=== PATIENT | female | born 1995 | race Caucasian/White ===

== ENCOUNTER → 2018-06-16 | Outpatient (CLI) | payer OTHER ==
--- NOTE | 2018-06-16 12:31 | US ---
EXAMINATION TYPE: US abdomen complete DATE OF EXAM: 06/16/2018 COMPARISON: NONE CLINICAL HISTORY: Abdominal pain. EXAM MEASUREMENTS: Liver Length: 14.0 cm Gallbladder Wall: 0.2 cm CBD: 0.5 cm Spleen: 8.9 cm Right Kidney: 11.4 x 4.4 x 4.8 cm Left Kidney: 10.9 x 4.8 x 4.2 cm Pancreas: Tail obscured by overlying bowel gas, visualized portions wnl Liver: wnl Gallbladder: wnl Evidence for sonographic Bray's sign: No CBD: wnl Spleen: wnl Right Kidney: No hydronephrosis or masses seen Left Kidney: No hydronephrosis or masses seen Upper IVC: wnl Abd Aorta: wnl The liver is homogenous. The intrahepatic portion of the IVC and proximal abdominal aorta are within normal limits. There is no evidence of cholelithiasis. Common bile duct is unremarkable. The visu alized portions of the pancreas are homogenous. The spleen is unremarkable. Kidneys are symmetric a nd free of hydronephrosis. No renal lesions are seen. IMPRESSION: Unremarkable abdominal ultrasound. No sonographic evidence of cholelithiasis or acute cho lecystitis. No hydronephrosis or nephrolithiasis.
--- NOTE | 2018-06-16 12:32 | US ---
EXAMINATION TYPE: US pelvic complete DATE OF EXAM: 06/16/2018 COMPARISON: NONE CLINICAL HISTORY: R10.9 ABD PAIN. Pelvic pain TECHNIQUE: . Transabdominal sonographic images of the pelvis were acquired. Date of LMP: About 1 month ago EXAM MEASUREMENTS: Uterus: 6.1 x 2.4 x 3.3 cm Endometrial Stripe: 0.3 cm Right Ovary: 2.2 x 1.0 x 1.5 cm Left Ovary: 3.4 x 1.5 x 2.4 cm 1. Uterus: Anteverted wnl 2. Endometrium: wnl 3. Right Ovary: wnl 4. Left Ovary: wnl 5. Bilateral Adnexa: wnl 6. Posterior cul-de-sac: wnl IMPRESSION: Unremarkable pelvic ultrasound. No endometrial thickening or ovarian mass.
== END | disposition home or self-care (01) ==
LOC: MERGE 09:54 → RADUSWWP 09:54
PROVIDERS: ATTEND Family Medicine
DX: R10.9 Unspecified abdominal pain (principal)
CPT/HCPCS: 76700; 76856

== ENCOUNTER 2018-12-08 12:06 | Day surgery (SDC) | payer OTHER, BC ==
[2018-12-04 12:00] VITALS: BMI 27.4
[~2018-12-08 12:06] MED LIST: LACTATED RINGERS 1,000 ML IV SCH
[2018-12-08] MEDS ORDERED: LACTATED RINGERS 1,000 ML IV ONE (12:27)
[2018-12-08] MEDS ORDERED: LIDOCAINE 1% 20 ML VIAL (10MG/ML) FOR IV START INTRADERMA ONE (12:27)
[2018-12-08 12:40] VITALS: RESP 18; TEMP 97.2
[2018-12-08] MEDS ORDERED: PROPOFOL 10 MG/ML 20 ML VIAL IV ONE (13:47)
--- NOTE | 2018-12-08 14:27 | P.PCN ---
Date of Procedure: 12/08/18 Procedure(s) Performed: Procedure: Colonoscopy and biopsy. Preoperative diagnosis: Change in bowel habits and blood in the stools. Postoperative diagnosis: 1. Exam of the colon and terminal ileum within normal limits. 2. Biopsies obtained randomly from the colon. Preparation: HalfLytely prep. Sedation: Was provided by anesthesia. Brief clinical history: The patient is a 23-year-old female who is scheduled for this evaluation because of chronic issues with loose stools and and an episode of blood in her stools several weeks ago. This evaluation is to assess for inflammatory bowel disease or other pathology. Procedure: With the patient on her left lateral decubitus position and after informed consent and adequate sedation the perianal area was inspected and it did not show any fissures or fistulas. There were no masses felt on digital rectal examination. The Olympus CFH 190L video colonoscope was then inserted in the rectum in the usual fashion and advanced to the cecum. I was able to have a good look at the terminal ileum but I was not able to advance the endoscope into the terminal ileum or obtain biopsies from the terminal ileum. The colon and terminal ileum appeared normal with no edema, erythema, friability , ulceration, exudation or spontaneous bleeding. No polyps or tumors were seen. I obtained biopsies from the colon randomly then I retroflexed the endoscope in the rectum before the endoscope was withdrawn. The patient tolerated the procedure well. Plan: The patient was reassured. Will await biopsy results. Further plans will be made based on her course and biopsy results. She will follow-up with you as planned and I will be happy to see in the office if her symptoms persist or there is change.
[2018-12-08 15:03] VITALS: BP 126/72; PULSE 78
== END 2018-12-08 14:50 | disposition home or self-care (01) ==
LOC: ORWHC2ENDO 12:06
DX: R19.4 Change in bowel habit (principal); K92.1 Melena; K21.9 Gastro-esophageal reflux disease without esophagitis; Z79.3 Long term (current) use of hormonal contraceptives; Z88.0 Allergy status to penicillin; F17.210 Nicotine dependence, cigarettes, uncomplicated
CPT/HCPCS: 81025; 88305; 45380; J2704

== ENCOUNTER 2020-08-11 20:52 | Emergency (ER) | payer BC, OTHER ==
[2020-08-11 20:59] VITALS: RESP 18
[2020-08-11] MEDS ORDERED: ONDANSETRON 4 MG/2 ML VIAL IVP STA (21:32)
[2020-08-11] MEDS ORDERED: SODIUM CHLORIDE 0.9% 500 ML 500 ML IV ONE (21:32)
[2020-08-11] MEDS ORDERED: HYDROmorphone 0.5 MG/0.5 ML SYRINGE IVP STA (21:32)
[2020-08-11] MEDS ORDERED: SODIUM CHLORIDE 0.9% 1,000 ML IV SCH (21:45)
--- NOTE | 2020-08-11 21:52 | ED ---
Headache HPI - General Chief Complaint: Headache Stated Complaint: Severe Headache Time Seen by Provider: 08/11/20 21:10 Mode of arrival: ambulatory Limitations: no limitations - History of Present Illness Initial Comments: 25-year-old female presenting today for chief complaint of headache. Patient states that her headache began around 3:30 to 4 PM. She states she is unsure of the exact time but noted it came on over the course of 5 minutes denies max intensity right away stating it gradually worsened over the course of the afternoon. Denies thunderclap start, with max intensity within a few seconds. Denies neck pain or stiffness she denies loss of consciousness she denies increased with exertion, denies history of migraines, Anton uri symptoms, or known fevers. Denies vomiting. Admits to nausea. She denies any visual changes weakness speech changes visual changes diplopia. Patient denies history of PCKD or aneursym. Patient appears uncomfortable on arrival standing up putting head down on the bed. - Related Data Home Medications Medication Instructions Recorded Confirmed Green-Linyah 28 1 tab PO DAILY 08/11/20 08/11/20 Allergies Allergy/AdvReac Type Severity Reaction Status Date / Time Penicillins Allergy Unknown Verified 08/11/20 22:03 Review of Systems ROS Statement: Those systems with pertinent positive or pertinent negative responses have been documented in the HPI. ROS Other: All systems not noted in ROS Statement are negative. Past Medical History Past Medical History: GERD/Reflux Additional Past Medical History / Comment(s): seizure x1 as a small child. pelvic pain and diarrhea. food sensitivities History of Any Multi-Drug Resistant Organisms: None Reported Past Surgical History: No Surgical Hx Reported Past Anesthesia/Blood Transfusion Reactions: No Reported Reaction Past Psychological History: No Psychological Hx Reported Smoking Status: Former smoker Past Alcohol Use History: Occasional Past Drug Use History: None Reported - Past Family History Mother Family Medical History: No Reported History General Exam - General Exam Comments Initial Comments: General: The patient is awake and alert, in no distress, and does not appear acutely ill. Eye: +3 mm pupils are equal, round and reactive to light, extra-ocular movements are intact. No nystagmus. There is normal conjunctiva bilaterally. No signs of icterus. Ears, nose, mouth and throat: There are moist mucous membranes and no oral lesions. Neck: The neck is supple, there is no tenderness or JVD. Cardiovascular: There is a regular rate and rhythm. No murmur, rub or gallop is appreciated. Respiratory: Lungs are clear to auscultation, respirations are non-labored, breath sounds are equal. No wheezes, stridor, rales, or rhonchi. Musculoskeletal: Normal ROM, no tenderness. Strength 5/5. Sensation intact. Radial pulses equal bilaterally 2+. Neurological: A&O x 3. CN II-XII intact, There are no obvious motor or sensory deficits. Coordination appears grossly intact. Speech is normal. No nuchal rigidity. Negative Brudzinski negative Kernig no pronator drift. Movements of the upper or lower extremities smooth and coordinated. No ataxia. gait normal. Skin: Skin is warm and dry and no rashes or lesions are noted. Psychiatric: Cooperative, appropriate mood & affect, normal judgment. Limitations: no limitations Course Vital Signs 08/11/20 08/11/20 20:57 22:15 Temperature 99.8 F H 98.1 F Pulse Rate 129 H 91 Respiratory 18 18 Rate Blood Pressure 133/74 111/63 O2 Sat by Pulse 100 98 Oximetry Medical Decision Making - Medical Decision Making Labs reveal lactic acid elevation. No meningeal irritation signs. Patient does not appears toxic. Afebrile. No URI symptoms. No focal neurological deficits. Patient CT co contrast (-). Resolution of STEEN on re-evaluation. We discussed how LP could be performed she refused stating her symptoms are resolved. Patient will be discharged with PCP as she is symptom free, no focal deficits, afebrile with no nuchal rigidity. Case discussed with Dr. Zamora who is agreeable to care plan and discharge. - Lab Data Result diagrams: 08/11/20 21:42 08/11/20 21:42 Lab Results 08/11/20 08/11/20 08/11/20 Range/Units 21:42 21:42 21:42 WBC 10.2 (3.8-10.6) k/uL RBC 4.90 (3.80-5.40) m/uL Hgb 13.6 (11.4-16.0) gm/dL Hct 40.6 (34.0-46.0) % MCV 82.9 (80.0-100.0) fL MCH 27.8 (25.0-35.0) pg MCHC 33.5 (31.0-37.0) g/dL RDW 12.7 (11.5-15.5) % Plt Count 399 (150-450) k/uL Neutrophils % 71 % Lymphocytes % 23 % Monocytes % 3 % Eosinophils % 1 % Basophils % 1 % Neutrophils # 7.3 (1.3-7.7) k/uL Lymphocytes # 2.3 (1.0-4.8) k/uL Monocytes # 0.3 (0-1.0) k/uL Eosinophils # 0.1 (0-0.7) k/uL Basophils # 0.1 (0-0.2) k/uL Sodium 138 (137-145) mmol/L Potassium 4.7 (3.5-5.1) mmol/L Chloride 106 (98-107) mmol/L Carbon Dioxide 22 (22-30) mmol/L Anion Gap 10 mmol/L BUN 10 (7-17) mg/dL Creatinine 0.59 (0.52-1.04) mg/dL Est GFR (CKD-EPI)AfAm >90 (>60 ml/min/1.73 sqM) Est GFR (CKD-EPI)NonAf >90 (>60 ml/min/1.73 sqM) Glucose 108 H (74-99) mg/dL Plasma Lactic Acid Earle 2.6 H* (0.7-2.0) mmol/L Calcium 9.6 (8.4-10.2) mg/dL Total Bilirubin 0.5 (0.2-1.3) mg/dL AST 31 (14-36) U/L ALT 17 (4-34) U/L Alkaline Phosphatase 49 (38-126) U/L Total Protein 7.8 (6.3-8.2) g/dL Albumin 4.7 (3.5-5.0) g/dL Urine Color Urine Appearance (Clear) Urine pH (5.0-8.0) Ur Specific [place] (1.001-1.035) Urine Protein (Negative) Urine Glucose (UA) (Negative) Urine Ketones (Negative) Urine Blood (Negative) Urine Nitrite (Negative) Urine Bilirubin (Negative) Urine Urobilinogen (<2.0) mg/dL Ur Leukocyte Esterase (Negative) Urine RBC (0-5) /hpf Urine WBC (0-5) /hpf Ur Squamous Epith Cells (0-4) /hpf Urine Bacteria (None) /hpf Urine Mucus (None) /hpf Urine HCG, Qual (Not Detectd) 08/11/20 08/11/20 Range/Units 22:50 22:50 WBC (3.8-10.6) k/uL RBC (3.80-5.40) m/uL Hgb (11.4-16.0) gm/dL Hct (34.0-46.0) % MCV (80.0-100.0) fL MCH (25.0-35.0) pg MCHC (31.0-37.0) g/dL RDW (11.5-15.5) % Plt Count (150-450) k/uL Neutrophils % % Lymphocytes % % Monocytes % % Eosinophils % % Basophils % % Neutrophils # (1.3-7.7) k/uL Lymphocytes # (1.0-4.8) k/uL Monocytes # (0-1.0) k/uL Eosinophils # (0-0.7) k/uL Basophils # (0-0.2) k/uL Sodium (137-145) mmol/L Potassium (3.5-5.1) mmol/L Chloride (98-107) mmol/L Carbon Dioxide (22-30) mmol/L Anion Gap mmol/L BUN (7-17) mg/dL Creatinine (0.52-1.04) mg/dL Est GFR (CKD-EPI)AfAm (>60 ml/min/1.73 sqM) Est GFR (CKD-EPI)NonAf (>60 ml/min/1.73 sqM) Glucose (74-99) mg/dL Plasma Lactic Acid Earle (0.7-2.0) mmol/L Calcium (8.4-10.2) mg/dL Total Bilirubin (0.2-1.3) mg/dL AST (14-36) U/L ALT (4-34) U/L Alkaline Phosphatase (38-126) U/L Total Protein (6.3-8.2) g/dL Albumin (3.5-5.0) g/dL Urine Color Light Yellow Urine Appearance Clear (Clear) Urine pH 5.5 (5.0-8.0) Ur Specific [place] 1.008 (1.001-1.035) Urine Protein Negative (Negative) Urine Glucose (UA) Negative (Negative) Urine Ketones 1+ H (Negative) Urine Blood Negative (Negative) Urine Nitrite Negative (Negative) Urine Bilirubin Negative (Negative) Urine Urobilinogen <2.0 (<2.0) mg/dL Ur Leukocyte Esterase Trace H (Negative) Urine RBC 1 (0-5) /hpf Urine WBC 1 (0-5) /hpf Ur Squamous Epith Cells 1 (0-4) /hpf Urine Bacteria Few H (None) /hpf Urine Mucus Occasional H (None) /hpf Urine HCG, Qual Not Detected (Not Detectd) Disposition Clinical Impression: Headache Disposition: HOME SELF-CARE Condition: Good Instructions (If sedation given, give patient instructions): Acute Headache (ED) Additional Instructions: Please use medication as discussed. Please follow-up with family doctor in the next 2 days. Please return to emergency room if the symptoms increase or worsen or for any other concerns. Is patient prescribed a controlled substance at d/c from ED?: No Referrals: Nani Ackerman MD [Primary Care Provider] - 1-2 days Time of Disposition: 23:15
[2020-08-11 22:11] LABS: Basophils # (A) 0.1 k/uL (0-0.2); Basophils % (A) 1 %; Eosinophils # (A) 0.1 k/uL (0-0.7); Eosinophils % (A) 1 %; HCT 40.6 % (34.0-46.0); HGB 13.6 gm/dL (11.4-16.0); Lymphocytes # (A) 2.3 k/uL (1.0-4.8); Lymphocytes % (A) 23 %; MCH 27.8 pg (25.0-35.0); MCHC 33.5 g/dL (31.0-37.0); MCV 82.9 fL (80.0-100.0); Mean Platelet Volume 6.5; Monocytes # (A) 0.3 k/uL (0-1.0); Monocytes % (A) 3 %; Neutrophils # (A) 7.3 k/uL (1.3-7.7); Neutrophils % (A) 71 %; Platelet Count 399 k/uL (150-450); RDW 12.7 % (11.5-15.5); WBC 10.2 k/uL (3.8-10.6)
[2020-08-11 22:22] LABS: ALT 17 U/L (4-34); AST 31 U/L (14-36); African American GFR (CKD) >90 (>60 ml/min/1.73 sqM); Albumin 4.7 g/dL (3.5-5.0); Alkaline Phosphatase 49 U/L (38-126); Anion Gap 10 mmol/L; Blood Urea Nitrogen 10 mg/dL (7-17); Calcium 9.6 mg/dL (8.4-10.2); Carbon Dioxide 22 mmol/L (22-30); Chloride 106 mmol/L (98-107); Glucose 108 mg/dL (74-99); Non-African American GFR(CKD) >90 (>60 ml/min/1.73 sqM); Potassium 4.7 mmol/L (3.5-5.1); Sodium 138 mmol/L (137-145); Total Bilirubin 0.5 mg/dL (0.2-1.3); Total Protein 7.8 g/dL (6.3-8.2)
--- NOTE | 2020-08-11 22:35 | CT ---
EXAMINATION TYPE: CT brain wo con DATE OF EXAM: 08/11/2020 COMPARISON: None HISTORY: Acute headache, felt behind RT eye. CT DLP: 1084.4 mGycm Automated exposure control for dose reduction was used. Ventricles and sulci appear normal. There is no mass effect nor midline shift. There is no sign of in tracranial hemorrhage. The calvarium is intact. There is no evidence of cerebral edema. There is no e vidence of orbital mass. IMPRESSION: Normal CT scan of the brain.
[2020-08-11 22:38] VITALS: BP 111/63; PULSE 91; TEMP 98.1
[2020-08-11 23:14] LABS: Appearance,Urine Clear (Clear); Bacteria,Urine Few /hpf; Bilirubin,Urine Negative (Negative); Blood,Urine Negative (Negative); Color,Urine Light Yellow; Glucose,Urine (UA) Negative (Negative); Ketones,Urine 1+ (Negative); Leukocyte Esterase,Urine Trace (Negative); Mucus,Urine Occasional /hpf; Nitrite,Urine Negative (Negative); PH, Urine 5.5 (5.0-8.0); Protein,Urine Negative (Negative); RBC,Urine 1 /hpf (0-5); Specific Gravity,Urine 1.008 (1.001-1.035); Squamous Epithelial Cell,Urine 1 /hpf (0-4); Urobilinogen,Urine <2.0 mg/dL (<2.0); WBC,Urine 1 /hpf (0-5)
== END 2020-08-11 23:36 | disposition home or self-care (01) ==
LOC: EC 20:52
DX: R74.01 Elevation of levels of liver transaminase levels (principal); R51.9 Headache, unspecified; I10 Essential (primary) hypertension; Z88.0 Allergy status to penicillin; Z79.3 Long term (current) use of hormonal contraceptives; Z87.891 Personal history of nicotine dependence
CPT/HCPCS: 96374 ×2; 96375 ×2; 96361 ×2; 99284 ×2; 36415; 80053; 83605; 85025; 81001; 81025; 87040; 70450; J2405; J1170

== ENCOUNTER → 2020-11-14 | Outpatient (CLI) | payer BC ==
[2020-11-14 14:01] LABS: HCT 38.2 % (34.0-46.0); HGB 12.7 gm/dL (11.4-16.0); MCH 26.8 pg (25.0-35.0); MCHC 33.4 g/dL (31.0-37.0); MCV 80.4 fL (80.0-100.0); Mean Platelet Volume 6.8; Platelet Count 356 k/uL (150-450); RBC 4.75 m/uL (3.80-5.40); RDW 12.9 % (11.5-15.5); WBC 8.9 k/uL (3.8-10.6)
[2020-11-14 20:38] LABS: African American GFR (CKD) 144.8 (60.0-200.0); Albumin 4.7 g/dL (3.80-4.90); Albumin/Globulin Ratio 2.04 (1.60-3.17); Anion Gap 12.2 mmol/L (4.00-12.00); Calcium 9.2 mg/dL (8.7-10.3); Carbon Dioxide 21.8 mmol/L (21.6-31.8); Chol/HDL Ratio 3.55; Globulin 2.3 g/dL (1.6-3.3); LDL Cholesterol,Calculated 145.8 mg/dL (0.0-131.0); Non-African American GFR(CKD) 124.9 (60.0-200.0); Potassium 4.1 mmol/L (3.5-5.5); Total Bilirubin 0.6 mg/dL (0.3-1.2); VLDL Calculation 17.2 mg/dL (5.00-40.00)
[2020-11-14 21:20] LABS: Hemoglobin A1C 4.7 % (4.0-6.0)
== END | disposition home or self-care (01) ==
LOC: LABWHC1 12:41
PROVIDERS: ATTEND Nurse Practitioner
DX: Z00.00 Encounter for general adult medical examination without abnormal findings (principal)
CPT/HCPCS: 36415; 80053; 80061; 82306; 83036; 84443; 85027

== ENCOUNTER 2021-12-01 07:00 | Emergency (ER) | payer BC ==
[2021-12-01 07:04] VITALS: TEMP 97.2
[2021-12-01] MEDS ORDERED: METOCLOPRAMIDE 5 MG/ML 2 ML VIAL IVP STA (07:17)
[2021-12-01] MEDS ORDERED: diphenhydrAMINE 50 MG/ML 1 ML VIAL IVP STA (07:17)
[2021-12-01] MEDS ORDERED: KETOROLAC 15 MG/ML 1 ML VIAL IVP STA (07:17)
[2021-12-01] MEDS ORDERED: SODIUM CHLORIDE 0.9% 2,000 ML IV ONE (07:17)
--- NOTE | 2021-12-01 07:28 | ED ---
General Adult HPI - General Chief complaint: Dizziness Stated complaint: Dizziness, Covid+ Time Seen by Provider: 12/01/21 07:05 Source: patient, RN notes reviewed Mode of arrival: ambulatory Limitations: no limitations - History of Present Illness Initial comments: This a 26-year-old female presents emergency department with chief complaint of nausea vomiting, dizziness. Patient states that she tested positive for COVID- 19 as she started having a sore throat and her was positive. Patient states that she has no shortness breath denies Headache but states overnight she had worsening nausea in which she's had emesis this morning. Denies any abdominal pain no chance . Patient does complain of mild body aches no reported fever. Patient has known ALLERGY penicillin products no other ALLERGIES has no significant past medical history. - Related Data Previous Rx's Medication Instructions Recorded Meclizine [Antivert] 25 mg PO TID PRN #15 tab 12/01/21 Ondansetron Odt [Zofran Odt] 4 mg PO Q8HR PRN #10 tab 12/01/21 Allergies Allergy/AdvReac Type Severity Reaction Status Date / Time Penicillins Allergy Unknown Verified 12/01/21 08:20 Childhood Review of Systems ROS Statement: Those systems with pertinent positive or pertinent negative responses have been documented in the HPI. ROS Other: All systems not noted in ROS Statement are negative. Past Medical History Past Medical History: GERD/Reflux Additional Past Medical History / Comment(s): seizure x1 as a small child. pelvic pain and diarrhea. food sensitivities History of Any Multi-Drug Resistant Organisms: None Reported Past Surgical History: No Surgical Hx Reported Past Anesthesia/Blood Transfusion Reactions: No Reported Reaction Past Psychological History: No Psychological Hx Reported Smoking Status: Former smoker Past Alcohol Use History: Occasional Past Drug Use History: None Reported - Past Family History Mother Family Medical History: No Reported History General Exam Limitations: no limitations General appearance: alert, in no apparent distress Head exam: Present: atraumatic, normocephalic, normal inspection Eye exam: Present: normal appearance, PERRL, EOMI. Absent: scleral icterus, conjunctival injection, periorbital swelling ENT exam: Present: normal exam, normal oropharynx, mucous membranes moist Neck exam: Present: normal inspection, full ROM. Absent: tenderness, meningismus, lymphadenopathy Respiratory exam: Present: normal lung sounds bilaterally. Absent: respiratory distress, wheezes, rales, rhonchi, stridor Cardiovascular Exam: Present: normal rhythm, tachycardia, normal heart sounds. Absent: systolic murmur, diastolic murmur, rubs, gallop, clicks GI/Abdominal exam: Present: soft, normal bowel sounds. Absent: distended, tenderness, guarding, rebound, rigid Back exam: Absent: CVA tenderness (R), CVA tenderness (L) Neurological exam: Present: alert, oriented X3, CN II-XII intact Skin exam: Present: warm, dry, intact, normal color. Absent: rash Course Vital Signs 12/01/21 07:00 Temperature 97.2 F L Pulse Rate 104 H Respiratory 22 Rate Blood Pressure 135/73 O2 Sat by Pulse 99 Oximetry Medical Decision Making - Medical Decision Making 26-year-old female presented from for covid Positive. Patient's been having nausea, dizziness. Patient found to be acutely dehydrated was hydrated, given antiemetics and Antivert feels greatly improved we discharged in stable condition with Antivert and Zofran return parameters were discussed. - Lab Data Result diagrams: 12/01/21 07:45 12/01/21 07:45 Lab Results 12/01/21 12/01/21 12/01/21 Range/Units 07:45 07:45 07:45 WBC 6.0 (3.8-10.6) k/uL RBC 4.91 (3.80-5.40) m/uL Hgb 13.5 (11.4-16.0) gm/dL Hct 40.5 (34.0-46.0) % MCV 82.5 (80.0-100.0) fL MCH 27.6 (25.0-35.0) pg MCHC 33.4 (31.0-37.0) g/dL RDW 13.1 (11.5-15.5) % Plt Count 310 (150-450) k/uL MPV 7.0 Neutrophils % 63 % Lymphocytes % 23 % Monocytes % 10 % Eosinophils % 1 % Basophils % 1 % Neutrophils # 3.8 (1.3-7.7) k/uL Lymphocytes # 1.4 (1.0-4.8) k/uL Monocytes # 0.6 (0-1.0) k/uL Eosinophils # 0.1 (0-0.7) k/uL Basophils # 0.0 (0-0.2) k/uL Sodium (137-145) mmol/L Potassium (3.5-5.1) mmol/L Chloride (98-107) mmol/L Carbon Dioxide (22-30) mmol/L Anion Gap mmol/L BUN (7-17) mg/dL Creatinine (0.52-1.04) mg/dL Est GFR (CKD-EPI)AfAm (>60 ml/min/1.73 sqM) Est GFR (CKD-EPI)NonAf (>60 ml/min/1.73 sqM) Glucose (74-99) mg/dL Calcium (8.4-10.2) mg/dL Total Bilirubin (0.2-1.3) mg/dL AST (14-36) U/L ALT (4-34) U/L Alkaline Phosphatase (38-126) U/L Total Protein (6.3-8.2) g/dL Albumin (3.5-5.0) g/dL Urine Color Yellow Urine Appearance Cloudy H (Clear) Urine pH 5.0 (5.0-8.0) Ur Specific [place] 1.027 (1.001-1.035) Urine Protein Trace H (Negative) Urine Glucose (UA) Negative (Negative) Urine Ketones 2+ H (Negative) Urine Blood Small H (Negative) Urine Nitrite Negative (Negative) Urine Bilirubin Negative (Negative) Urine Urobilinogen <2.0 (<2.0) mg/dL Ur Leukocyte Esterase Moderate H (Negative) Urine RBC 1 (0-5) /hpf Urine WBC 5 (0-5) /hpf Ur Squamous Epith Cells 12 H (0-4) /hpf Urine Bacteria Occasional H (None) /hpf Urine Mucus Occasional H (None) /hpf Urine HCG, Qual Not Detected (Not Detectd) 12/01/21 Range/Units 07:45 WBC (3.8-10.6) k/uL RBC (3.80-5.40) m/uL Hgb (11.4-16.0) gm/dL Hct (34.0-46.0) % MCV (80.0-100.0) fL MCH (25.0-35.0) pg MCHC (31.0-37.0) g/dL RDW (11.5-15.5) % Plt Count (150-450) k/uL MPV Neutrophils % % Lymphocytes % % Monocytes % % Eosinophils % % Basophils % % Neutrophils # (1.3-7.7) k/uL Lymphocytes # (1.0-4.8) k/uL Monocytes # (0-1.0) k/uL Eosinophils # (0-0.7) k/uL Basophils # (0-0.2) k/uL Sodium 138 (137-145) mmol/L Potassium 3.9 (3.5-5.1) mmol/L Chloride 108 H (98-107) mmol/L Carbon Dioxide 20 L (22-30) mmol/L Anion Gap 10 mmol/L BUN 10 (7-17) mg/dL Creatinine 0.45 L (0.52-1.04) mg/dL Est GFR (CKD-EPI)AfAm >90 (>60 ml/min/1.73 sqM) Est GFR (CKD-EPI)NonAf >90 (>60 ml/min/1.73 sqM) Glucose 107 H (74-99) mg/dL Calcium 9.0 (8.4-10.2) mg/dL Total Bilirubin 0.5 (0.2-1.3) mg/dL AST 65 H (14-36) U/L ALT 103 H (4-34) U/L Alkaline Phosphatase 67 (38-126) U/L Total Protein 7.6 (6.3-8.2) g/dL Albumin 4.3 (3.5-5.0) g/dL Urine Color Urine Appearance (Clear) Urine pH (5.0-8.0) Ur Specific [place] (1.001-1.035) Urine Protein (Negative) Urine Glucose (UA) (Negative) Urine Ketones (Negative) Urine Blood (Negative) Urine Nitrite (Negative) Urine Bilirubin (Negative) Urine Urobilinogen (<2.0) mg/dL Ur Leukocyte Esterase (Negative) Urine RBC (0-5) /hpf Urine WBC (0-5) /hpf Ur Squamous Epith Cells (0-4) /hpf Urine Bacteria (None) /hpf Urine Mucus (None) /hpf Urine HCG, Qual (Not Detectd) Disposition Clinical Impression: COVID-19, Dehydration Disposition: HOME SELF-CARE Condition: Stable Instructions (If sedation given, give patient instructions): Coronavirus Disease 2019 (COVID-19) Additional Instructions: Please return to the Emergency Department if symptoms worsen or any other concerns. Prescriptions: Meclizine [Antivert] 25 mg PO TID PRN #15 tab PRN Reason: Vertigo Ondansetron Odt [Zofran Odt] 4 mg PO Q8HR PRN #10 tab PRN Reason: Nausea Is patient prescribed a controlled substance at d/c from ED?: No Referrals: Nani Ackerman MD [Primary Care Provider] - 1-2 days Time of Disposition: 09:40
[2021-12-01] MEDS ORDERED: MECLIZINE 12.5 MG TAB PO STA (07:55)
[2021-12-01] MEDS ORDERED: ONDANSETRON 4 MG/2 ML VIAL IVP STA (07:55)
[2021-12-01 07:57] LABS: Basophils % (A) 1 %; Eosinophils # (A) 0.1 k/uL (0-0.7); Eosinophils % (A) 1 %; HCT 40.5 % (34.0-46.0); HGB 13.5 gm/dL (11.4-16.0); Lymphocytes # (A) 1.4 k/uL (1.0-4.8); Lymphocytes % (A) 23 %; MCH 27.6 pg (25.0-35.0); MCHC 33.4 g/dL (31.0-37.0); MCV 82.5 fL (80.0-100.0); Monocytes # (A) 0.6 k/uL (0-1.0); Monocytes % (A) 10 %; Neutrophils # (A) 3.8 k/uL (1.3-7.7); Neutrophils % (A) 63 %; Platelet Count 310 k/uL (150-450); RBC 4.91 m/uL (3.80-5.40); RDW 13.1 % (11.5-15.5)
[2021-12-01 08:18] LABS: Appearance,Urine Cloudy (Clear); Bacteria,Urine Occasional /hpf; Bilirubin,Urine Negative (Negative); Blood,Urine Small (Negative); Color,Urine Yellow; Glucose,Urine (UA) Negative (Negative); Ketones,Urine 2+ (Negative); Leukocyte Esterase,Urine Moderate (Negative); Mucus,Urine Occasional /hpf; Nitrite,Urine Negative (Negative); Protein,Urine Trace (Negative); RBC,Urine 1 /hpf (0-5); Specific Gravity,Urine 1.027 (1.001-1.035); Squamous Epithelial Cell,Urine 12 /hpf (0-4); Urobilinogen,Urine <2.0 mg/dL (<2.0); WBC,Urine 5 /hpf (0-5)
[2021-12-01 08:22] LABS: ALT 103 U/L (4-34); AST 65 U/L (14-36); African American GFR (CKD) >90 (>60 ml/min/1.73 sqM); Albumin 4.3 g/dL (3.5-5.0); Alkaline Phosphatase 67 U/L (38-126); Anion Gap 10 mmol/L; Blood Urea Nitrogen 10 mg/dL (7-17); Carbon Dioxide 20 mmol/L (22-30); Chloride 108 mmol/L (98-107); Glucose 107 mg/dL (74-99); Non-African American GFR(CKD) >90 (>60 ml/min/1.73 sqM); Potassium 3.9 mmol/L (3.5-5.1); Sodium 138 mmol/L (137-145); Total Bilirubin 0.5 mg/dL (0.2-1.3); Total Protein 7.6 g/dL (6.3-8.2)
[2021-12-01 10:36] VITALS: BP 104/60; PULSE 89; RESP 20
== END 2021-12-01 10:37 | disposition home or self-care (01) ==
LOC: EC 07:00
DX: U07.1 COVID-19 (principal); E86.0 Dehydration; Z87.891 Personal history of nicotine dependence; Z88.0 Allergy status to penicillin
CPT/HCPCS: 36415; 80053; 85025; 81001; 81025; 99284; 96374; 96375; 96361; J1200; J2765; J2405; J1885

== ENCOUNTER 2022-06-29 15:10 | Outpatient (CLI) | payer BC ==
[2022-06-29 16:51] VITALS: BP 132/73; PULSE 121; RESP 17; TEMP 97.4
--- NOTE | 2022-07-16 08:03 | P.MSEPDOC ---
Presenting Problems - Arrival Data Date of Arrival on Unit: 06/29/22 Time of Arrival on Unit: 15:10 Mode of Transport: Ambulatory - Complaint OB-Reason for Admission/Chief Complaint: Decreased Movement Medical History - Information : 1 Para: 0 Term: 0 : 0 Abortions: Spontaneous or Elective: 0 Number of Living Children: 0 - Gestational Age Gestational Age by LE (wks/days): 26 Weeks and 5 Days - History Complications: Hx. Substance Abuse Comment: THC use during Review of Systems - Review of Systems Constitutional: No problems Breast: No problems ENT: No problems Cardiovascular: No problems Respiratory: No problems Gastrointestinal: No problems Genitourinary: No problems Musculoskeletal: No problems Neurological: No problems Skin: No problems Vital Signs - Temperature Temperature: 97.4 F Temperature Source: Temporal Artery Scan - Pulse Right Brachial Pulse Rate: 121 Pulse Assessment Method: Automatic Cuff - Respirations Respiratory Rate: 17 Oxygen Delivery Method: Room Air - Blood Pressure Right Arm Blood Pressure: 132/73 Blood Pressure Mean: 92 Blood Pressure Source: Automatic Cuff Medical Screen Scoring - Assessment - Baby A Baseline FHR: 140 Heart Rate - NICHD Category: Category I (Normal) Physician Notification - Physician Notified Physician Notified Date: 06/29/22 Physician Notified Time: 16:20 Physician: Tameka Hoyt Order Received: Yes - Notification Comment Comment: pt feeling mutiple movements since arrival, pulse initally 121, but came down to 90's, no contractions, next appt with Dr. Wheeler on Saturday, Maternal Triage Index - Stat/Priority 1 Stat Priority 1: No - Urgent/Priority 2 Urgent Priority 2: No - Prompt/Priority 3 Prompt Priority 3: Yes Criteria Met for Priority 3: pt presented to triage for decreased movement Disposition - Disposition OB Disposition: Triage, Discharge to home, Written follow up instructions reviewed Discharge Date: 06/29/22 Discharge Time: 16:32 I agree with the RN Medical Screening Exam: Yes Case reviewed; plan agreed upon as documented in EMR&OBIX.: Yes Diagnosis: decreased movement
== END 2022-06-29 16:32 | disposition home or self-care (01) ==
LOC: FBPOP 15:10
PROVIDERS: ATTEND Obstetrics & Gynecology
DX: O36.8120 Decreased fetal movements, second trimester, not applicable or unspecified (principal); Z3A.26 26 weeks gestation of pregnancy
CPT/HCPCS: 99213

== ENCOUNTER 2022-08-31 15:03 | Outpatient (CLI) | payer BC ==
[2022-08-31 16:20] VITALS: BP 132/83; PULSE 108; RESP 16; TEMP 97.7
--- NOTE | 2022-09-18 14:34 | P.MSEPDOC ---
Presenting Problems - Arrival Data Date of Arrival on Unit: 08/31/22 Time of Arrival on Unit: 15:05 Mode of Transport: Ambulatory - Complaint OB-Reason for Admission/Chief Complaint: Other Comment: swelling in leg Medical History - Information : 1 Para: 0 Term: 0 : 0 Abortions: Spontaneous or Elective: 0 Number of Living Children: 0 - Gestational Age Gestational Age by LE (wks/days): 35 Weeks and 5 Days Review of Systems - Review of Systems Constitutional: No problems Breast: No problems ENT: No problems Cardiovascular: No problems Respiratory: No problems Gastrointestinal: No problems Genitourinary: No problems Musculoskeletal: No problems Neurological: No problems Skin: No problems Vital Signs - Temperature Temperature: 97.7 F Temperature Source: Oral - Pulse Right Brachial Pulse Rate: 108 Pulse Assessment Method: Automatic Cuff - Respirations Respiratory Rate: 16 Oxygen Delivery Method: Room Air - Blood Pressure Right Arm Blood Pressure: 132/83 Blood Pressure Mean: 99 Blood Pressure Source: Automatic Cuff Medical Screen Scoring - Assessment - Baby A Baseline FHR: 150 Heart Rate - NICHD Category: Category I (Normal) Physician Notification - Physician Notified Physician Notified Date: 08/31/22 Physician Notified Time: 15:40 Physician: Tess Wheeler New Order Received: Yes Maternal Triage Index - Maternal Triage Index Presenting for scheduled procedure w/no complaint: No - Stat/Priority 1 Stat Priority 1: No - Urgent/Priority 2 Urgent Priority 2: No - Prompt/Priority 3 Prompt Priority 3: No - Non-Urgent/Priority 4 Non-Urgent Priority 4: Yes Criteria Met for Priority 4: leg swelling Disposition - Disposition OB Disposition: Admit Discharge Date: 08/31/22 Discharge Time: 15:55 I agree with the RN Medical Screening Exam: Yes Case reviewed; plan agreed upon as documented in EMR&OBIX.: Yes Diagnosis: RELATED CONDITIONS, UNSPECIFIED, THIRD TRIMESTER
== END 2022-08-31 15:33 | disposition home or self-care (01) ==
LOC: FBPOP 15:03
PROVIDERS: ATTEND Obstetrics & Gynecology Obstetrics
DX: O26.893 Other specified pregnancy related conditions, third trimester (principal); Z3A.35 35 weeks gestation of pregnancy; O12.03 Gestational edema, third trimester; Z88.0 Allergy status to penicillin; F17.200 Nicotine dependence, unspecified, uncomplicated
CPT/HCPCS: 59025; 99213

== ENCOUNTER 2022-09-13 10:52 | Outpatient (CLI) | payer BC ==
[2022-09-13 13:03] VITALS: BP 126/66; PULSE 95; RESP 16; TEMP 97.9
== END 2022-09-13 12:40 | disposition home or self-care (01) ==
LOC: FBPOP 10:52
PROVIDERS: ATTEND Obstetrics & Gynecology Obstetrics
DX: O26.859 Spotting complicating pregnancy, unspecified trimester (principal); Z88.0 Allergy status to penicillin; F17.200 Nicotine dependence, unspecified, uncomplicated
CPT/HCPCS: 59025; 84112; 99213

== ENCOUNTER 2022-09-21 13:52 | Outpatient (CLI) | payer BC ==
[2022-09-21 19:19] VITALS: BP 134/86; PULSE 105; RESP 17; TEMP 97.9
--- NOTE | 2022-09-22 10:45 | P.MSEPDOC ---
Presenting Problems - Arrival Data Date of Arrival on Unit: 09/21/22 Time of Arrival on Unit: 13:52 Mode of Transport: Ambulatory - Complaint OB-Reason for Admission/Chief Complaint: Decreased Movement Comment: pt presents to triage for decreased movement, pt is scheduled for primary section on Saturday for breech Medical History - Information : 1 Para: 0 Term: 0 : 0 Abortions: Spontaneous or Elective: 0 Number of Living Children: 0 - Gestational Age Gestational Age by LE (wks/days): 38 Weeks and 5 Days - History Complications: Breech Review of Systems - Review of Systems Constitutional: No problems Breast: No problems ENT: No problems Cardiovascular: No problems Respiratory: No problems Gastrointestinal: No problems Genitourinary: No problems Musculoskeletal: No problems Neurological: No problems Skin: No problems Vital Signs - Temperature Temperature: 97.9 F Temperature Source: Temporal Artery Scan - Pulse Right Brachial Pulse Rate: 105 Pulse Assessment Method: Automatic Cuff - Respirations Respiratory Rate: 17 Oxygen Delivery Method: Room Air - Blood Pressure Right Arm Blood Pressure: 134/86 Blood Pressure Mean: 102 Blood Pressure Source: Automatic Cuff Medical Screen Scoring - Assessment - Baby A Baseline FHR: 140 Heart Rate - NICHD Category: Category I (Normal) NST: Reactive Physician Notification - Physician Notified Physician Notified Date: 09/21/22 Physician Notified Time: 14:22 Physician: Salo Baca Maternal Triage Index - Maternal Triage Index Presenting for scheduled procedure w/no complaint: No - Stat/Priority 1 Stat Priority 1: No - Urgent/Priority 2 Urgent Priority 2: No - Prompt/Priority 3 Prompt Priority 3: Yes Criteria Met for Priority 3: pt presents to triage for decreased movement, pt is scheduled for primary section on Saturday for breech Disposition - Disposition OB Disposition: Triage, Discharge to home, Written follow up instructions reviewed Discharge Date: 09/21/22 Discharge Time: 14:30 I agree with the RN Medical Screening Exam: Yes Physician's MSE Comment: I have neither seen nor examined the patient. Case reviewed; plan agreed upon as documented in EMR&OBIX.: Yes Diagnosis: RELATED CONDITIONS, UNSPECIFIED, THIRD TRIMESTER
== END 2022-09-21 14:30 | disposition home or self-care (01) ==
LOC: FBPOP 13:52
PROVIDERS: ATTEND Obstetrics & Gynecology
DX: O36.8130 Decreased fetal movements, third trimester, not applicable or unspecified (principal); Z3A.38 38 weeks gestation of pregnancy; Z88.0 Allergy status to penicillin; F17.200 Nicotine dependence, unspecified, uncomplicated
CPT/HCPCS: 59025; 99213

== ENCOUNTER 2022-09-24 07:59 | Inpatient (IN) | payer BC ==
[2022-09-24] MEDS ORDERED: LACTATED RINGERS 1,000 ML IV ONE (08:17)
[2022-09-24] MEDS ORDERED: CITRIC ACID-SODIUM CITRATE 15 ML CUP PO ONE (08:17)
[2022-09-24 08:42] LABS: Anisocytosis Slight; Basophils % (A) 0 %; Eosinophils % (A) 0 %; HCT 40.3 % (34.0-46.0); HGB 13.2 gm/dL (11.4-16.0); Lymphocytes # (A) 1.7 k/uL (1.0-4.8); Lymphocytes % (A) 17 %; MCH 25.5 pg (25.0-35.0); MCHC 32.8 g/dL (31.0-37.0); Mean Platelet Volume 8.3; Microcytosis Slight; Monocytes # (A) 0.4 k/uL (0-1.0); Monocytes % (A) 4 %; Neutrophils # (A) 7.5 k/uL (1.3-7.7); Neutrophils % (A) 75 %; Platelet Count 280 k/uL (150-450); RBC 5.17 m/uL (3.80-5.40); RDW 16.2 % (11.5-15.5); WBC 9.9 k/uL (3.8-10.6)
[2022-09-24] MEDS ORDERED: OXYTOCIN 30 UNITS/500 ML NS BAG IV ONE (10:05)
[2022-09-24] MEDS ORDERED: MORPHINE SULFATE (PF) 0.3 MG/0.3 ML SYR ONE (10:05)
[2022-09-24] MEDS ORDERED: ePHEDrine 50 MG/ML 1 ML VIAL ONE (10:05)
[2022-09-24] MEDS ORDERED: ONDANSETRON 4 MG/2 ML VIAL ONE (10:05)
[2022-09-24] MEDS ORDERED: NALBUPHINE 10 MG/ML (1 ML AMP) ONE (10:05)
--- NOTE | 2022-09-24 11:08 | P.OP ---
Date of Procedure: 09/24/22 Preoperative Diagnosis: IUP at 39 1/7 weeks, breech presentation Postoperative Diagnosis: Same Procedure(s) Performed: Primary low transverse section Anesthesia: spinal Surgeon: Tess Wheeler Final Armature Tester #1: Tameka Hoyt Estimated Blood Loss (ml): 890 IV fluids (ml): 900 Urine output (ml): 100 Pathology: none sent Condition: stable Disposition: PACU Indications for Procedure: 27-year-old 1 para 0 at 39 and one sevenths weeks that presents to labor and delivery for scheduled primary low transverse section secondary to breech presentation. Operative Findings: Viable male in breech presentation delivered at 10:30, weight of 8 lbs. 9 oz., Apgars of 8 and 9 at one and 5 minutes respectively Description of Procedure: Patient was taken back to the operating suite where spinal anesthesia was found be adequate by the anesthesia department. She is prepped and draped in the normal sterile fashion in the dorsal supine position a Pfannenstiel skin incision was made with the scalpel and carried through to underlying layer of fascia. Significant subcu edema was appreciated. The fascia was then incised in the midline and extended laterally. The superior aspect of the fascial incision was then grasped herlinda clamps, elevated and underlying rectus muscles dissected off sharply. Attention was then turned the inferior aspect of the fascial incision which was grasped herlinda clamps, elevated and underlying rectus muscles dissected off sharply. The rectus muscles were in the midline the peritoneum was identified and entered. In yandy ring retractor was then placed into the abdomen. The vesicouterine peritoneum was identified and a bladder flap was created using sharp and blunt dissection. Hysterotomy incision was made with the scalpel, amniotomy was performed and clear fluid was obtained. was encountered in a ventura breech presentation and delivered in the usual fashion. The umbilical cord was doubly clamped and cut. was handed off to awaiting RN. The placenta was then delivered manually and the uterus was exteriorized and cleared of all clots and debris. The uterine incision was closed 0 Vicryl in a running locked fashion. A second inverting suture was performed. The pelvis was then copiously irrigated hysterotomy incision was inspected and found to be hemostatic. The uterus was returned to the abdomen. A small amount of bleeding was then appreciated in the midline portion of the hysterotomy incision therefore a [id number] suture was used to obtain hemostasis. The gutters were cleared of all clots and debris. The rectus muscles were loosely reapproximated in a points of bleeding were made hemostatic with the Bovie. The fascia was then closed with 0 Vicryl in a running fashion from one lateral edge the midline and the other lateral edge the midline. The subcutaneous tissue was irrigated and any points of bleeding were made hemostatic with the Bovie. The subcu tissues then closed with 3-0 Vicryl in a running fashion. The skin was then closed with 4-0 Vicryl in a subcuticular fashion. All counts were correct 2 at the end of the delivery. Patient and tolerated delivery well and are resting complete.
--- NOTE | 2022-09-24 11:09 | P.HPOB ---
History of Present Illness H&P Date: 09/24/22 Chief Complaint: IUP at 39 weeks, breech, suspected LGA 27 yo at 39 weeks that presents to labor and delivery for scheduled secondary to breech presentation, and suspected LGA. she has been receiving routine care with myself without complication. Breech presentation was appreciated throughout the . On bloodwork this patient is a blood type of A+, rubella status immune, hepatitis B surface engine negative, HIV negative, RPR is nonreactive, group beta strep cultures negative. Review of Systems Constitutional: Denies chills, Denies fatigue, Denies fever Ears, nose, mouth and throat: Denies headache Cardiovascular: Reports leg edema Respiratory: Denies dyspnea Gastrointestinal: Denies nausea, Denies vomiting Genitourinary: Reports Past Medical History Past Medical History: GERD/Reflux Additional Past Medical History / Comment(s): seizure x1 as a small child. pelvic pain and diarrhea. food sensitivities History of Any Multi-Drug Resistant Organisms: None Reported Past Surgical History: No Surgical Hx Reported Past Anesthesia/Blood Transfusion Reactions: No Reported Reaction Past Psychological History: Anxiety Additional Psychological History / Comment(s): previously on meds, not during Smoking Status: Former smoker Past Alcohol Use History: Occasional Additional Past Alcohol Use History / Comment(s): 1/2 ppd for 6 years Past Drug Use History: None Reported - Past Family History Mother Family Medical History: No Reported History Medications and Allergies Home Medications Medication Instructions Recorded Confirmed Type Aspirin [Children's Aspirin] 81 mg PO DAILY 06/29/22 09/24/22 History Vit No.179/Iron/Folic 1 each PO DAILY 06/29/22 09/24/22 History [ Tablet] Ferrous Sulfate [Iron] 325 mg PO DAILY 09/13/22 09/24/22 History Omeprazole 20 mg PO DAILY 09/13/22 09/24/22 History Allergies Allergy/AdvReac Type Severity Reaction Status Date / Time Penicillins Allergy Unknown Verified 06/29/22 15:22 Childhood Exam Osteopathic Statement: *. No significant issues noted on an osteopathic structural exam other than those noted in the History and Physical/Consult. Vital Signs Temp Pulse Resp BP Pulse Ox 09/24/22 08:46 98.8 F 118 H 18 129/64 97 Intake and Output 09/23/22 09/24/22 09/24/22 22:59 06:59 14:59 Other: Weight 110.677 kg targeted physical exam is done on this date, in general this is a well nourished well developed female in no acute distress breathing is noted to be non labored, abdomen is gravid and large for GA, heart tones are category 1 and occasional ctx are noted. Results Result Diagrams: 09/24/22 08:25 Abnormal Lab Results - Last 24 Hours (Table) 09/24/22 Range/Units 08:25 MCV 78.0 L (80.0-100.0) fL RDW 16.2 H (11.5-15.5) % Assessment and Plan (1) 39 weeks gestation of Current Visit: Yes Status: Acute Code(s): Z3A.39 - 39 WEEKS GESTATION OF SNOMED Code(s): 05766869 (2) Breech presentation Current Visit: Yes Status: Acute Code(s): O32.1XX0 - MATERNAL CARE FOR BREECH PRESENTATION, UNSP SNOMED Code(s): 3782440 Plan: This is a 27-year-old 1 para 0 at 39 and one sevenths weeks that presents to labor and delivery for scheduled primary low transverse section secondary to breech presentation. Patient is counseled on surgery and all questions are answered. Patient states understanding of the procedure. Patient wishes to proceed.
[2022-09-24] MEDS ORDERED: diphenhydrAMINE 50 MG/ML 1 ML VIAL IVP PRN ×2 (11:29)
[2022-09-24] MEDS ORDERED: SIMETHICONE 80 MG CHEWABLE PO PRN (11:29)
[2022-09-24] MEDS ORDERED: ZOLPIDEM 5 MG TAB PO PRN (11:29)
[2022-09-24] MEDS ORDERED: diphenhydrAMINE 25 MG CAP PO PRN (11:29)
[2022-09-24] MEDS ORDERED: OXYTOCIN 30 UNITS/500 ML NS 30 UNIT in SALINE 1 500ML.BAG IV SCH (11:29)
[2022-09-24] MEDS ORDERED: ONDANSETRON 4 MG/2 ML VIAL IVP PRN (11:29)
[2022-09-24] MEDS ORDERED: METOCLOPRAMIDE 5 MG/ML 2 ML VIAL IVP PRN (11:29)
[2022-09-24] MEDS ORDERED: diphenhydrAMINE 50 MG CAP PO PRN (11:29)
[2022-09-24] MEDS ORDERED: NALOXONE 0.4 MG/ML 1 ML VIAL IV PRN (11:29)
[2022-09-24] MEDS: LACTATED RINGERS 1,000 ML IV SCH ×2 (12:19→21:45)
[2022-09-24] MEDS: ACETAMINOPHEN IV (For NPO) 1,000 MG in EMPTY BAG 1 BAG IVPB SCH ×2 (12:20→13:56)
[2022-09-24] MEDS: ACETAMINOPHEN TAB 500 MG TAB PO SCH ×3 (13:57→19:42)
[2022-09-24] MEDS ORDERED: IBUPROFEN IV 800 MG in SODIUM CHLORIDE 0.9% 250 ML IV PRN (18:00)
[2022-09-24] MEDS: IBUPROFEN 600 MG TAB PO SCH ×2 (18:03→23:39)
[2022-09-24] MEDS: SENNOSIDES-DOCUSATE SODIUM 1 EACH TAB PO SCH (21:15)
[2022-09-25] MEDS: ACETAMINOPHEN TAB 500 MG TAB PO SCH ×4 (03:27→21:55)
[2022-09-25] MEDS: LACTATED RINGERS 1,000 ML IV SCH ×2 (03:28→19:46)
[2022-09-25 05:51] LABS: Anisocytosis Slight; Basophils # (A) 0.1 k/uL (0-0.2); Basophils % (A) 0 %; Eosinophils # (A) 0.1 k/uL (0-0.7); Eosinophils % (A) 1 %; HCT 32.4 % (34.0-46.0); HGB 10.6 gm/dL (11.4-16.0); Lymphocytes # (A) 2.1 k/uL (1.0-4.8); Lymphocytes % (A) 17 %; MCH 26.3 pg (25.0-35.0); MCHC 32.6 g/dL (31.0-37.0); MCV 80.5 fL (80.0-100.0); Mean Platelet Volume 7.6; Monocytes # (A) 0.7 k/uL (0-1.0); Monocytes % (A) 5 %; Neutrophils # (A) 9.3 k/uL (1.3-7.7); Neutrophils % (A) 75 %; Platelet Count 267 k/uL (150-450); RBC 4.03 m/uL (3.80-5.40); RDW 16.1 % (11.5-15.5); WBC 12.5 k/uL (3.8-10.6)
[2022-09-25] MEDS: IBUPROFEN 600 MG TAB PO SCH ×4 (06:34→23:40)
[2022-09-25] MEDS: SENNOSIDES-DOCUSATE SODIUM 1 EACH TAB PO SCH ×2 (07:35→20:08)
--- NOTE | 2022-09-25 08:38 | P.PNOBGPC ---
Subjective - Subjective Principal diagnosis: Postop day 1, primary Interval history: Patient is doing well postoperatively. She is ambulating and voiding without difficulty. She is tolerating a regular diet without nausea or vomiting. She states her pain is well-controlled. Patient reports: Reports appetite normal, Reports voiding normally, Reports pain well controlled, Reports ambulating normally [place]: doing well, nursing well Objective - Vital Signs Latest vital signs: Vital Signs Temp Pulse Resp BP Pulse Ox 09/25/22 07:41 97.8 F 94 17 115/77 100 09/25/22 03:44 91 16 133/85 98 09/25/22 00:00 98.3 F 56 L 16 113/53 100 09/24/22 20:00 98.4 F 112 H 16 109/58 97 09/24/22 15:14 97.6 F 95 18 139/63 99 09/24/22 13:01 98.3 F 95 17 123/70 99 09/24/22 12:29 94 17 119/60 100 09/24/22 12:01 97.7 F 85 17 121/64 96 09/24/22 11:46 91 17 129/59 95 09/24/22 11:31 91 17 122/55 99 09/24/22 11:16 95 18 142/63 99 09/24/22 11:01 96.2 F L 105 H 18 118/63 97 09/24/22 08:46 98.8 F 118 H 18 129/64 97 Intake and Output 09/24/22 09/25/22 09/25/22 22:59 06:59 14:59 Output Total 400 150 Balance -400 -150 Output: Urine 400 150 Uretheral (Charles) 400 Other: Voiding Method Indwelling Catheter # Voids 0 2 - Exam Extremities: Present: normal, edema Abdomen: Present: normal appearance, soft Incision: Present: normal, dry, intact Uterus: Present: normal, firm - Labs Labs: Abnormal Lab Results - Last 24 Hours (Table) 09/24/22 09/25/22 Range/Units 08:25 05:32 WBC 12.5 H (3.8-10.6) k/uL Hgb 10.6 L (11.4-16.0) gm/dL Hct 32.4 L (34.0-46.0) % MCV 78.0 L (80.0-100.0) fL RDW 16.2 H 16.1 H (11.5-15.5) % Neutrophils # 9.3 H (1.3-7.7) k/uL Assessment and Plan (1) 39 weeks gestation of Current Visit: Yes Status: Acute Code(s): Z3A.39 - 39 WEEKS GESTATION OF SNOMED Code(s): 16129639 (2) Breech presentation Current Visit: Yes Status: Acute Code(s): O32.1XX0 - MATERNAL CARE FOR BREECH PRESENTATION, UNSP SNOMED Code(s): 8200892 (3) S/P section Current Visit: Yes Status: Acute Code(s): Z98.891 - HISTORY OF UTERINE SCAR FROM PREVIOUS SURGERY SNOMED Code(s): 744857359 Plan: 27-year-old status post primary for breech. Patient is doing well postoperatively. We will discontinue dressing this morning and have her get into the shower. Encourage increased ambulation. Patient is struggling somewhat with breast-feeding and we'll work with this morning. Patient does desire circumcision for her son prior to discharge. Continue routine postoperative care.
--- NOTE | 2022-09-25 09:27 | P.PN ---
Progress Note - Text Progress Note Date: 09/25/22 Postoperative day 1 status post section under spinal anesthesia, and i ntrathecal morphine given for postoperative analgesia, patient doing well, there is no anesthesia related complications, Patient had no headache, vital signs stable , Assessment and plan= postop day 1 status post , doing well there is no anesthesia related complication.
[2022-09-25 15:30] VITALS: RESP 16
[2022-09-26] MEDS: ACETAMINOPHEN TAB 500 MG TAB PO SCH (05:36)
[2022-09-26] MEDS: IBUPROFEN 600 MG TAB PO SCH ×2 (06:10→07:56)
[2022-09-26] MEDS: SENNOSIDES-DOCUSATE SODIUM 1 EACH TAB PO SCH (07:56)
--- NOTE | 2022-09-26 08:16 | P.DS ---
Providers Date of admission: 09/24/22 07:59 Expected date of discharge: 09/26/22 Attending physician: Tess Wheeler Primary care physician: Stated None - Discharge Diagnosis(es) (1) 39 weeks gestation of Current Visit: Yes Status: Acute (2) Breech presentation Current Visit: Yes Status: Acute (3) S/P section Current Visit: Yes Status: Acute Hospital Course: this is a 27-year-old 1 now para 1 that presents to labor and delivery at 39 and one sevenths weeks for scheduled primary secondary to breech presentation. Patient had been receiving routine care which has been essentially uncomplicated. Patient was admitted and taken back to the operating suite. For full details on the please see the operative report. Patient delivered a viable male infant in breech presentation at 10:30, weight of 8 lbs. 9 oz., Apgars of 8 and 9 at one and 5 minutes respectively. Patient has done well postoperatively. On this postoperative day #2 she is ambulating and voiding without difficulty. She is tolerating a regular diet without nausea or vomiting. She states her lochia is moderate, she is breast-feeding without difficulty. She would like discharge home on this postoperative day #2. Patient Condition at Discharge: Good Plan - Discharge Summary New Discharge Prescriptions: No Action Aspirin [Children's Aspirin] 81 mg PO DAILY Ferrous Sulfate [Iron] 325 mg PO DAILY Vit No.179/Iron/Folic [ Tablet] 1 each PO DAILY Omeprazole 20 mg PO DAILY Discharge Medication List Aspirin [Children's Aspirin] 81 mg PO DAILY 06/29/22 [History] Vit No.179/Iron/Folic [ Tablet] 1 each PO DAILY 06/29/22 [History] Ferrous Sulfate [Iron] 325 mg PO DAILY 09/13/22 [History] Omeprazole 20 mg PO DAILY 09/13/22 [History] Follow up Appointment(s)/Referral(s): Tess Wheeler DO [Doctor of Osteopathic Medicine] - 2 Weeks Patient Instructions/Handouts: (DC), (GEN) Activity/Diet/Wound Care/Special Instructions: [id number]-[id number] ibuprofen 600 mg as needed for pain every 6 hours. Patient is counseled on discharge instructions no tub baths or intercourse. Patient is counseled to follow-up in 2 weeks for routine postoperative check. Bleeding precautions are given to patient. Should she have any concerns prior to this appointment she is urged to call the office. Discharge Disposition: HOME SELF-CARE
[2022-09-26 08:28] VITALS: BP 120/74; PULSE 92; TEMP 98.3
== END 2022-09-26 11:00 | disposition home or self-care (01) | DRG 788 ==
LOC: 4FBP 07:59
PROVIDERS: ADMIT Obstetrics & Gynecology Obstetrics; ATTEND Obstetrics & Gynecology Obstetrics
PROC: 4A0HXCZ Measurement of Products of Conception, Cardiac Rate, External Approach (ICD-10-PCS; 2022-09-24)
PROC: 10D00Z1 Extraction of Products of Conception, Low, Open Approach (ICD-10-PCS; principal; 2022-09-24 10:00)
DX: O32.1XX0 Maternal care for breech presentation, not applicable or unspecified (principal); F41.9 Anxiety disorder, unspecified; O99.344 Other mental disorders complicating childbirth; O99.62 Diseases of the digestive system complicating childbirth; O36.63X0 Maternal care for excessive fetal growth, third trimester, not applicable or unspecified; Z37.0 Single live birth; Z3A.39 39 weeks gestation of pregnancy; Z79.82 Long term (current) use of aspirin; Z87.891 Personal history of nicotine dependence; Z88.0 Allergy status to penicillin
CPT/HCPCS: 85025; 86850; 86900; 86901

== ENCOUNTER 2025-01-25 12:20 | Outpatient (CLI) | payer OTHER ==
[2025-01-25 13:09] VITALS: BP 119/67; PULSE 87; RESP 16; TEMP 96.8
--- NOTE | 2025-02-11 20:41 | P.MSEPDOC ---
Presenting Problems - Arrival Data Date of Arrival on Unit: 01/25/25 Time of Arrival on Unit: 12:20 Mode of Transport: Ambulatory - Complaint OB-Reason for Admission/Chief Complaint: Decreased Movement Medical History - Information : 1 Para: 0 Term: 0 : 0 Abortions: Spontaneous or Elective: 0 Number of Living Children: 0 - Gestational Age Gestational Age by LE (wks/days): 30 Weeks and 6 Days - History Complications: Prior Review of Systems - Review of Systems Constitutional: No problems Breast: No problems ENT: No problems Cardiovascular: No problems Respiratory: No problems Gastrointestinal: No problems Genitourinary: No problems Musculoskeletal: No problems Neurological: No problems Skin: No problems Vital Signs - Temperature Temperature: 96.8 F Temperature Source: Temporal Artery Scan - Pulse Right Brachial Pulse Rate: 87 Pulse Assessment Method: Automatic Cuff - Respirations Respiratory Rate: 16 Oxygen Delivery Method: Room Air O2 Sat by Pulse Oximetry: 100 - Blood Pressure Right Arm Blood Pressure: 119/67 Blood Pressure Mean: 84 Blood Pressure Source: Automatic Cuff Medical Screen Scoring - Assessment - Baby A Baseline FHR: 145 Heart Rate - NICHD Category: Category I (Normal) NST: Reactive Physician Notification - Physician Notified Physician Notified Date: 01/25/25 Physician Notified Time: 12:57 Physician: Tess Wheeler New Order Received: Yes - Notification Comment Comment: Dr. Wheeler in dept. Report given on pt c/o. Reactive NST. VS WNL. movement felt per pt. Orders received to d/c pt to home. Maternal Triage Index - Urgent/Priority 2 Urgent Priority 2: Yes Provider Notified: Tess Wheeler Provider Notified Time: 12:57 Criteria Met for Priority 2: Pt c/o of decreased movement. Disposition - Disposition OB Disposition: Discharge to home Discharge Date: 01/25/25 Discharge Time: 13:04 I agree with the RN Medical Screening Exam: Yes Case reviewed; plan agreed upon as documented in EMR&OBIX.: Yes Diagnosis: DECREASED MOVEMENTS, THIRD TRIMESTER, FETUS 1
== END 2025-01-25 13:04 | disposition home or self-care (01) ==
LOC: FBPOP 12:20
PROVIDERS: ATTEND Obstetrics & Gynecology Obstetrics
DX: O36.8131 Decreased fetal movements, third trimester, fetus 1 (principal); O99.333 Smoking (tobacco) complicating pregnancy, third trimester; F17.200 Nicotine dependence, unspecified, uncomplicated; Z88.0 Allergy status to penicillin; Z3A.30 30 weeks gestation of pregnancy
CPT/HCPCS: 59025; 99213

== ENCOUNTER 2025-03-11 10:55 | Outpatient (CLI) | payer OTHER ==
[2025-03-11 12:37] VITALS: BP 122/72; PULSE 102; RESP 16; TEMP 97.3
--- NOTE | 2025-03-25 10:04 | P.MSEPDOC ---
Presenting Problems - Arrival Data Date of Arrival on Unit: 03/11/25 Time of Arrival on Unit: 10:55 Mode of Transport: Ambulatory - Complaint OB-Reason for Admission/Chief Complaint: Possible Onset of Labor Medical History - Information : 2 Para: 1 Number of Living Children: 1 - Gestational Age Gestational Age by LE (wks/days): 37 Weeks and 2 Days Review of Systems - Review of Systems Constitutional: No problems Breast: No problems ENT: No problems Cardiovascular: No problems Respiratory: No problems Gastrointestinal: No problems Genitourinary: No problems Musculoskeletal: No problems Neurological: No problems Skin: No problems Vital Signs - Temperature Temperature: 97.3 F Temperature Source: Oral - Pulse Right Sitting Brachial Pulse Rate: 102 Pulse Assessment Method: Automatic Cuff - Respirations Respiratory Rate: 16 Oxygen Delivery Method: Room Air O2 Sat by Pulse Oximetry: 99 - Blood Pressure Right Arm Sitting Blood Pressure: 122/72 Blood Pressure Mean: 88 Blood Pressure Source: Automatic Cuff Medical Screen Scoring - Cervical Exam Dilation (cm): 0 Effacement (%): 0 Membranes: Intact - Uterine Contractions Intensity: Mild Resting: Soft to palpation - Assessment - Baby A Baseline FHR: 140 Heart Rate - NICHD Category: Category I (Normal) NST: Reactive Physician Notification - Physician Notified Physician Notified Date: 03/11/25 Physician Notified Time: 12:10 Physician: Tess Wheeler New Order Received: Yes - Notification Comment Comment: dc Maternal Triage Index - Maternal Triage Index Presenting for scheduled procedure w/no complaint: No - Stat/Priority 1 Stat Priority 1: No - Urgent/Priority 2 Urgent Priority 2: No - Prompt/Priority 3 Prompt Priority 3: No - Non-Urgent/Priority 4 Non-Urgent Priority 4: Yes Criteria Met for Priority 4: irregular contx Disposition - Disposition OB Disposition: Discharge to home Discharge Date: 03/11/25 Discharge Time: 12:15 I agree with the RN Medical Screening Exam: Yes Case reviewed; plan agreed upon as documented in EMR&OBIX.: Yes Diagnosis: FALSE LABOR AT OR AFTER 37 COMPLETED WEEKS OF GESTATION
== END 2025-03-11 12:15 | disposition home or self-care (01) ==
LOC: FBPOP 10:55
PROVIDERS: ATTEND Obstetrics & Gynecology Obstetrics
DX: O47.1 False labor at or after 37 completed weeks of gestation (principal); O99.333 Smoking (tobacco) complicating pregnancy, third trimester; F17.200 Nicotine dependence, unspecified, uncomplicated; Z3A.37 37 weeks gestation of pregnancy; Z88.0 Allergy status to penicillin
CPT/HCPCS: 59025; 99213

== ENCOUNTER 2025-03-29 08:38 | Outpatient (CLI) | payer OTHER ==
[2025-03-29 09:39] VITALS: BP 126/81; PULSE 87; RESP 14; TEMP 98
--- NOTE | 2025-04-10 11:40 | P.MSEPDOC ---
Presenting Problems - Arrival Data Date of Arrival on Unit: 03/29/25 Time of Arrival on Unit: 08:40 Mode of Transport: Ambulatory - Complaint OB-Reason for Admission/Chief Complaint: Pain Comment: right upper gastric pain 5/10 X 2 days Medical History - Gestational Age Gestational Age by LE (wks/days): 40 Weeks and 4 Days - History Comment: Pt is delivered on 03/25/25 Review of Systems - Review of Systems Constitutional: No problems Breast: No problems ENT: No problems Cardiovascular: No problems Respiratory: No problems Gastrointestinal: No problems Genitourinary: No problems Musculoskeletal: No problems Neurological: No problems Skin: No problems Comment: pt complains of right hand swelling Vital Signs - Temperature Temperature: 98.0 F Temperature Source: Oral - Pulse Right Brachial Pulse Rate: 87 Pulse Assessment Method: Automatic Cuff - Respirations Respiratory Rate: 14 Oxygen Delivery Method: Room Air - Blood Pressure Right Arm Blood Pressure: 126/81 Blood Pressure Mean: 96 Blood Pressure Source: Automatic Cuff - Comment Vital Signs Comment: repeat 113/70 Physician Notification - Physician Notified Physician Notified Date: 03/29/25 Physician Notified Time: 09:09 Physician: Salo Baca Order Received: Yes - Notification Comment Comment: d/c home Maternal Triage Index - Maternal Triage Index Presenting for scheduled procedure w/no complaint: No - Stat/Priority 1 Stat Priority 1: No - Urgent/Priority 2 Urgent Priority 2: No - Prompt/Priority 3 Prompt Priority 3: No - Non-Urgent/Priority 4 Non-Urgent Priority 4: Yes Criteria Met for Priority 4: right hand swelling and epigastic pain Disposition - Disposition OB Disposition: Discharge to home Discharge Date: 03/29/25 Discharge Time: 09:15 I agree with the RN Medical Screening Exam: Yes Physician's MSE Comment: I have neither seen nor examined the patient. Case reviewed; plan agreed upon as documented in EMR&OBIX.: Yes Diagnosis: RELATED CONDITIONS, UNSPECIFIED, THIRD TRIMESTER
== END 2025-03-29 09:40 | disposition home or self-care (01) ==
LOC: FBPOP 08:38
PROVIDERS: ATTEND Obstetrics & Gynecology
DX: O26.893 Other specified pregnancy related conditions, third trimester (principal); O99.333 Smoking (tobacco) complicating pregnancy, third trimester; R52 Pain, unspecified; F17.200 Nicotine dependence, unspecified, uncomplicated; Z3A.40 40 weeks gestation of pregnancy; Z88.0 Allergy status to penicillin
CPT/HCPCS: 99215